=== PATIENT | male | born 1975 | race African-American/Black ===

== ENCOUNTER 2022-06-07 04:19 | Emergency (ER) | payer MEDICAID ==
[~2022-06-07] VITALS: Ht 188 cm; Wt 102.0 kg
[2022-06-07 04:28] VITALS: BP 117/74
[2022-06-07] MEDS ORDERED: HYDR-4622 TP (04:56)
[2022-06-07] MEDS ORDERED: FURO-152 PO (04:56)
== END 2022-06-07 05:00 | disposition home or self-care (01) ==
LOC: ER 04:19
DX: R60.0 Localized edema (principal); L25.9 Unspecified contact dermatitis, unspecified cause; Z88.4 Allergy status to anesthetic agent
CPT/HCPCS: 99283